=== PATIENT | female | born 1985 | race Caucasian/White ===

== ENCOUNTER 2017-06-02 23:37 | Emergency (ER) | payer BC ==
[~2017-06-02] VITALS: Ht 165.1 cm; Wt 63.5 kg
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
--- NOTE | 2017-06-02 23:59 | NUR ---
dr bowen at bedside for eval.
[2017-06-03] MEDS ORDERED: SULFAMETH/TRIMETH 800/160 MG 1 UDTAB TABLET PO ONE ×2
[2017-06-03] MEDS ORDERED: HYDROCODONE/APAP 5/325MG 1 EACH TABLET PO ONE
[2017-06-03] MEDS ORDERED: HYDROCODONE/APAP 5/325MG 1 EACH TABLET ONE
[2017-06-03] MEDS ORDERED: CEPHALEXIN MONOHYDRATE 500 MG CAPSULE PO ONE ×2
--- NOTE | 2017-06-03 00:20 | NUR ---
wound care provided.
--- NOTE | 2017-06-03 00:35 | NUR ---
Patient discharged to home in stable condition. Written and verbal after care instructions given. Patient verbalizes understanding of instruction.
[2017-06-03 00:37] VITALS: BP 142/66
== END 2017-06-03 00:38 | disposition home or self-care (01) ==
LOC: EDSEX 23:44 → EDBD 23:44 → ER 23:44
DX: T24.011A Burn of unspecified degree of right thigh, initial encounter (principal); L08.9 Local infection of the skin and subcutaneous tissue, unspecified; X15.8XXA Contact with other hot household appliances, initial encounter; Y93.89 Activity, other specified; Y92.89 Other specified places as the place of occurrence of the external cause; Y99.9 Unspecified external cause status
CPT/HCPCS: 99284; A4606; Z7610

== ENCOUNTER 2017-08-26 17:43 | Emergency (ER) | payer BC ==
[~2017-08-26] VITALS: Ht 154.9 cm; Wt 65.8 kg
[2017-08-26 17:57] VITALS: BP 135/81
[2017-08-26] MEDS ORDERED: predniSONE 20 MG TABLET ONE (18:26)
[2017-08-26] MEDS ORDERED: ALBUTEROL FS 2.5 MG/3 ML VIAL.NEB ONE (18:28)
[2017-08-26] MEDS ORDERED: predniSONE 20 MG TABLET PO ONE (18:30)
[2017-08-26] MEDS ORDERED: ALBUTEROL FS 2.5 MG/3 ML VIAL.NEB NEB ONE (18:30)
--- NOTE | 2017-08-26 18:46 | NUR ---
RT NOTE: SHIFT CHANGE AT THIS TIME. REPORT GIVEN TO INCOMING RT(YAIMA).
== END 2017-08-26 19:48 | disposition home or self-care (01) ==
LOC: ER 17:45
DX: R05 Cough (principal); J45.909 Unspecified asthma, uncomplicated
CPT/HCPCS: 71045; 94640; 99283; A4606; J7512; Z7610

== ENCOUNTER 2018-01-28 09:29 | Emergency (ER) | payer BC, MEDICAID ==
[~2018-01-28] VITALS: Ht 165.1 cm; Wt 70.8 kg
[2018-01-28] MEDS ORDERED: predniSONE 20 MG TABLET ONE (09:40)
[2018-01-28] MEDS ORDERED: IPRATROPIUM NEB FS 0.5 MG/2.5 ML AMPUL.NEB ONE ×2 (09:42→10:07)
[2018-01-28] MEDS ORDERED: ALBUTEROL FS 2.5 MG/3 ML VIAL.NEB ONE ×2 (09:42→10:07)
--- NOTE | 2018-01-28 09:42 | NUR ---
PT REC'D MEDICATION ORDERED.
--- NOTE | 2018-01-28 09:45 | NUR ---
RT AT THE BEDSIDE. PT IS ON A BREATHING TX.
--- NOTE | 2018-01-28 09:49 | NUR ---
DR. MONGE IS AT THE BEDSIDE WITH PA-C STUDENT.
[2018-01-28] MEDS ORDERED: ALBUTEROL FS 2.5 MG/3 ML VIAL.NEB CONTNEB ONE ×2 (10:00→10:30)
[2018-01-28] MEDS ORDERED: IPRATROPIUM NEB FS 0.5 MG/2.5 ML AMPUL.NEB NEB ONE ×2 (10:00→10:30)
[2018-01-28] MEDS ORDERED: predniSONE 20 MG TABLET PO ONE (10:00)
--- NOTE | 2018-01-28 10:09 | NUR ---
PT REC'ING 2ND BREATHING TX.
--- NOTE | 2018-01-28 11:49 | NUR ---
BREATHING TX FINISHED.
--- NOTE | 2018-01-28 11:50 | NUR ---
Patient discharged to home in stable condition. Written and verbal after care instructions given. Patient verbalizes understanding of instruction AND RX. PT AMBULATED OUT WITH A STEADY GAIT. VSS. NAD NOTED. NO S/S OF PAIN OR DISTRESS NOTED.
[2018-01-28 11:51] VITALS: BP 119/75
== END 2018-01-28 11:52 | disposition home or self-care (01) ==
LOC: ER 09:30
DX: J45.901 Unspecified asthma with (acute) exacerbation (principal)
CPT/HCPCS: 94640 ×2; 99284; A4606; J7512; Z7610

== ENCOUNTER 2018-03-02 23:55 | Emergency (ER) | payer BC ==
[~2018-03-02] VITALS: Ht 165.1 cm; Wt 74.8 kg
[2018-03-02 23:55] VITALS: BP 133/81
== END 2018-03-03 02:04 | disposition home or self-care (01) ==
LOC: ER 03-03 00:02
DX: J45.901 Unspecified asthma with (acute) exacerbation (principal)
CPT/HCPCS: A4606; Z7610

== ENCOUNTER 2019-03-26 21:52 | Emergency (ER) | payer BC ==
[~2019-03-26] VITALS: Ht 162.6 cm; Wt 77.1 kg
[2019-03-26 22:03] VITALS: BP 106/68
[2019-03-26 22:40] LABS: APPEARANCE,URINE Slightly Cloudy (CLEAR); BILIRUBIN,URINE SMALL (NEGATIVE); BLOOD, URINE Negative Ery/uL (NEGATIVE); COLOR,URINE Yellow (YELLOW); KETONES,URINE Negative (NEGATIVE); LEUKOCYTE ESTERASE ,URINE Small (NEGATIVE); NITRITE, URINE Negative (NEGATIVE); PH,URINE 7.5 (5.0-8.0); PROTEIN,URINE Negative (NEGATIVE); UGLUCOSE Negative (NEGATIVE); UROBILINOGEN,URINE 0.2 EU/dL (0.2)
[2019-03-26 23:18] LABS: RBC,URINE 0-2 /HPF (0-2)
[2019-03-26 23:19] LABS: BACTERIA,URINE Moderate /HPF (None Seen); SQUAMOUS EPITHELIAL CELL,UR Moderate /HPF (None Seen)
--- NOTE | 2019-03-26 23:50 | NUR ---
pt refuse meds. Pt states "i'm going to the pharmacy right away, i'll just get it from there"
[2019-03-27] MEDS ORDERED: NITROFURANTOIN/NITROFURAN MAC 100 MG CAPSULE PO ONE
[2019-03-27] MEDS ORDERED: PHENAZOPYRIDINE HCL 200 MG TABLET PO ONE
== END 2019-03-26 23:53 | disposition home or self-care (01) ==
LOC: ER 21:56
DX: N30.90 Cystitis, unspecified without hematuria (principal); J45.909 Unspecified asthma, uncomplicated
CPT/HCPCS: 81000-TC; 84703-TC; 87086-TC

== ENCOUNTER 2023-07-16 02:58 | Emergency (ER) | payer BC, MEDICAID, OTHER ==
[~2023-07-16] VITALS: Ht 165.1 cm; Wt 98.9 kg
[2023-07-16 03:40] VITALS: BP 123/93; TEMP 98.2
[2023-07-16] MEDS ORDERED: AMOX-430 PO (03:45)
[2023-07-16 03:53] VITALS: O2SAT 97
== END 2023-07-16 03:56 | disposition home or self-care (01) ==
LOC: ER 03:02
DX: S31.139A Puncture wound of abdominal wall without foreign body, unspecified quadrant without penetration into peritoneal cavity, initial encounter (principal); L03.311 Cellulitis of abdominal wall; J45.909 Unspecified asthma, uncomplicated; Z79.899 Other long term (current) drug therapy; W54.0XXA Bitten by dog, initial encounter; Y93.89 Activity, other specified; Y92.89 Other specified places as the place of occurrence of the external cause; Y99.8 Other external cause status